=== PATIENT | female | born 1970 | race Caucasian/White ===

== ENCOUNTER 2018-04-27 11:37 | Emergency (ER) | payer OTHER, SELFPAY ==
[2018-04-27 11:37] VITALS: BP 133/75; PULSE 82; RESP 18; TEMP 37.3; O2SAT 97
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
[2018-04-27] MEDS: Normal Saline 1,000 ML 1000 ML IV (11:50)
[2018-04-27] MEDS: HYDROmorphone 2 MG/ML VIAL 0.5 MG IVP (11:55)
[2018-04-27] MEDS: Omnipaque 350 MG/ML 100 ML BTL IJ (12:18)
[2018-04-27 12:48] LABS: Abs Immature Grans 0.01 k/cumm (0.0-0.09); Absolute Basophil Count 0.03 k/cumm (0.0-0.2); Absolute Lymphocyte Count 2.17 k/cumm (1.2-3.4); Absolute Monocyte Count 0.42 k/cumm (0.11-0.7); Absolute Neutrophil Count 2.88 k/cumm (1.2-6.7); Basophils % 0.5; Eosinophils % 3.5; HCT 37.6 % (36.0-46.0); HGB 12.5 g/dL (12.0-15.5); Immature Grans % 0.2; Mean Corp. HGB Concentration 33.2 g/dL (32.0-36.0); Mean Corpuscular Hemoglobin 29.2 pg (27.0-33.0); Mean Corpuscular Volume 87.9 fL (80-95); Mean Platelet Volume 9.6 fL (8.0-11.0); Monocytes % 7.4; Neutrophils % 50.4; Platelet Count 319 x1000/uL (130-400); RBC 4.28 m/cumm (4.00-5.20); RBC Distribution Width 13.1 % (11.7-14.6); White Blood Cell Count 5.71 k/cumm (4.4-10.8)
[2018-04-27 13:05] LABS: ALT 32 U/L (12-78); AST 21 U/L (15-37); Albumin 3.3 g/dL (3.4-5.0); Alkaline Phosphatase 79 U/L (46-116); Anion Gap 10.2 mmol/L (3-11); BUN 13 mg/dL (7-18); Bilirubin, Total 0.3 mg/dL (0.2-1.0); CO2 27.8 mmol/L (21.0-32.0); CREATININE 0.64 mg/dL (0.55-1.02); Calcium 8.9 mg/dL (8.5-10.1); Chloride 101 mmol/L (98-107); Glucose 88 mg/dL (70-100); Potassium 3.4 mmol/L (3.5-5.1); Sodium 139 mmol/L (136-145); Total Protein 6.6 g/dL (6.4-8.2)
[2018-04-27 13:08] LABS: Prothrombin Time 9.9 sec (9.3-11.0)
[2018-04-27 13:34] LABS: HCG Quant, Pregnancy 1 mIU/mL (1-3)
[2018-04-27] MEDS: Ibuprofen 400 MG TAB PO (13:54)
[2018-04-27 14:04] LABS: Bilirubin Negative (Negative); Blood Negative (Negative); Clarity Clear; Glucose Negative (Negative); Ketones Negative (Negative); Leukocyte Esterase Negative (Negative); Nitrite Negative (Negative); Urobilinogen 0.2 EU/dL (Up TO 0.2); pH 6.5 (5-8)
[2018-04-27 14:11] VITALS: BP 120/75; PULSE 65; RESP 16; O2SAT 98
== END 2018-04-27 14:05 | disposition home or self-care (01) ==
PROVIDERS: Emergency Provider Student in an Organized Health Care Education/Training Program; PCP Nurse Practitioner Family
DX: R10.9 Unspecified abdominal pain (principal); V03.00XA Pedestrian on foot injured in collision with car, pick-up truck or van in nontraffic accident, initial encounter; I10 Essential (primary) hypertension
CPT/HCPCS: 36415; 80053; 86850; 86900; 86901; 96374; 96375; 99285; 74177; 81003; 84702; 85025; 85610; 99284; J3490

== ENCOUNTER 2021-02-12 00:41 | Outpatient (CLI) | payer OTHER, SELFPAY ==
--- NOTE | 2021-02-12 12:25 | DI.MAMMO_ITS ---
Exam(s) MAMMO SCREENING EXAM: MAMMO SCREENING CLINICAL HISTORY: screening TECHNIQUE: Mammograms were interpreted according to the usual protocol including computer analysis w [employer] CAD system, tomosynthesis and C-view imaging. COMPARISON: 2014 FINDINGS: The breasts are composed of scattered fibroglandular densities, Breast Density category B. No suspicious masses or suspicious microcalcifications are seen. No skin thickening or abnormal axillary lymph nodes are seen. There has been no significant change from prior exams. IMPRESSION: BI-RADS Category 1, Negative mammogram Yearly screening mammography is recommended. Breast Density - Category B, scattered fibroglandular densities. A negative radiographic report should not delay biopsy if a dominant or clinically suspicious mass is present. Up to ten percent of cancers are not identified on mammography. A negative report may reinforce clinical impression. Adenosis and dense breasts may obscure an underlying neoplasm. False positive reports average 6 to 10%. Patient will receive a letter notifying them of these results.
== END 2021-02-12 01:01 ==
PROVIDERS: PCP Nurse Practitioner Family; Visit Provider Obstetrics & Gynecology Gynecology
DX: Z12.31 Encounter for screening mammogram for malignant neoplasm of breast (principal)
CPT/HCPCS: 77063; 77067

== ENCOUNTER 2021-02-12 03:36 | Outpatient (CLI) | payer OTHER, SELFPAY ==
[2021-02-12 13:21] LABS: TSH (W/Ref FT4) 1.72 uIU/mL (0.36-3.74)
== END 2021-02-12 03:37 | disposition home or self-care (01) ==
LOC: LBO 03:37
PROVIDERS: PCP Nurse Practitioner Family; Visit Provider Obstetrics & Gynecology Gynecology
DX: E04.9 Nontoxic goiter, unspecified (principal)
CPT/HCPCS: 36415; 84443

== ENCOUNTER 2022-03-22 13:44 | Emergency (ER) | payer OTHER, SELFPAY ==
[2022-03-22 13:51] VITALS: BP 140/86; PULSE 104; RESP 18; TEMP 36.8; O2SAT 98
--- NOTE | 2022-03-22 14:15 | DI.CT_ITS ---
Exam(s) CT LUMBAR SPINE WO EXAM: CT LUMBAR SPINE WO CLINICAL HISTORY: 100 lb box fell on back, pain. TECHNIQUE: Imaging Protocol: Axial computed tomography images with coronal and sagittal reformatted images were created and reviewed FINDINGS: Bones: The last intervertebral disc space is designated the L5/S1 level for the numbering purpose of this examination. The vertebral body heights are well maintained. Alignment is satisfactory. No fracture is seen. T12-L1: No disc herniations or bulges are present. L1-2: No disc herniations or bulges are present. L2-3: No disc herniations or bulges are present. L3-4: Mild disc bulging L4-5: Moderate disc bulging. Facet degenerative changes and ligamentous hypertrophy combine to prod uce mild central canal stenosis. L5-S1: No disc herniations or bulges are present. The visualized SI joints and sacrum are will maintained. Soft Tissues: Stable appearance of small bilateral adrenal nodules. A punctate nonobstructing stone s both kidneys. Mild atherosclerotic changes in the aorta. Status post cholecystectomy. IMPRESSION: No acute abnormality. RADIATION DOSE DELIVERED: 598.55mGy.cm Total DLP DATA REPOSITORY: All CT scans at this facility are submitted to the National Radiology Data Registry (NRDR) Dose Index Registry (DIR) with the [employer] (ACR). RADIATION OPTIMIZATION: All CT scans at this facility use at least one of these dose optimization te chniques: automated exposure control; mA and/or kV adjustment per patient size (includes targeted exa ms where dose is matched to clinical indication); or iterative reconstruction.
--- NOTE | 2022-03-22 14:15 | DI.RAD_ITS ---
Exam(s) XR PELVIS AP EXAM: XR PELVIS AP CLINICAL HISTORY: box fell on back, pain. TECHNIQUE: 2D digital imaging was performed. COMPARISON: No exams were available for comparison FINDINGS: BONES: No acute fracture is present. No bony destructive lesion is seen. JOINTS: No dislocation present. No joint space narrowing is present. SOFT TISSUE: Normal. IMPRESSION: Unremarkable radiographs of the pelvis. DATA REPOSITORY: RADIATION DOSE DELIVERED:
[2022-03-22] MEDS: ACETAMINOPHEN 1,000 MG/100 ML BTL 400 MG IVPB (14:40)
[2022-03-22] MEDS: LORazepam 2 MG/ML VIAL 0.5 MG IVP (14:41)
[2022-03-22] MEDS: Ketorolac 15 MG/ML VIAL IVP (14:41)
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
[2022-03-22] MEDS: Lidocaine 5% Patch 1 PATCH (15:27)
== END 2022-03-22 15:50 | disposition home or self-care (01) ==
PROVIDERS: Emergency Provider Emergency Medicine; PCP Nurse Practitioner Family
DX: S30.0XXA Contusion of lower back and pelvis, initial encounter (principal); W20.8XXA Other cause of strike by thrown, projected or falling object, initial encounter
CPT/HCPCS: 96365; 96375; 99284; 72131; 72170; J0131; J1885; J2060

== ENCOUNTER → 2023-01-24 01:01 | Outpatient (CLI) | payer OTHER, SELFPAY ==
--- NOTE | 2023-01-24 | DI.MAMMO_ITS ---
Exam(s) MAMMO SCREENING EXAM: MAMMO SCREENING CLINICAL HISTORY: SCREENING,Z12.39 TECHNIQUE: Mammograms were interpreted according to the usual protocol including computer analysis w [employer] CAD system, tomosynthesis and C-view imaging. COMPARISON: 2014 and 2020 FINDINGS: The breasts are composed of scattered fibroglandular densities, Breast Density category B. No suspicious masses or suspicious microcalcifications are seen. No skin thickening or abnormal axillary lymph nodes are seen. There has been no significant change from prior exams. IMPRESSION: BI-RADS Category 1, Negative mammogram Yearly screening mammography is recommended. Breast Density - Category B, scattered fibroglandular densities. A negative radiographic report should not delay biopsy if a dominant or clinically suspicious mass is present. Up to ten percent of cancers are not identified on mammography. A negative report may reinforce clinical impression. Adenosis and dense breasts may obscure an underlying neoplasm. False positive reports average 6 to 10%. Patient will receive a letter notifying them of these results.
== END ==
PROVIDERS: PCP Nurse Practitioner Family; Visit Provider Nurse Practitioner Family
DX: Z12.31 Encounter for screening mammogram for malignant neoplasm of breast (principal)
CPT/HCPCS: 77063; 77067

== ENCOUNTER 2023-03-05 13:35 | Outpatient (CLI) | payer OTHER, SELFPAY ==
--- NOTE | 2023-03-05 06:00 | DI.RAD_ITS ---
Exam(s) XR PAIN CLINIC SACRIOILIAC 2V EXAM: XR PAIN CLINIC SACRIOILIAC 2V CLINICAL HISTORY: Dx: Sacroiliac Joint Dysfunction TECHNIQUE: 2D and realtime digital imaging was performed. CONTRAST MATERIAL: Refer to procedure report. COMPARISON: No exams were available for comparison FINDINGS: Fluoroscopy was provided for Dr. Cota during the performance of a right sacroiliac joint injection. Please refer to the procedure report for complete details. Ka,r=3.3 mGy IMPRESSION:
[2023-03-05 13:45] VITALS: BP 118/76; PULSE 84; RESP 20; TEMP 36.7; O2SAT 98
--- NOTE | 2023-03-05 14:30 | PDOC.PAIN_ITS ---
Date of service: 03/05/23 Time of Service: 14:30 Pain Managment Procedure Note Procedure Note Procedure Note: PROCEDURE NOTE RIGHT INTRA-ARTICULAR SACROILIAC JOINT INJECTION Date of Service: March 05, 2023 Patient: Maria Del Carmen Gonzalez Provider: Wilson Cota DO, MPH COMMENTS: I previously evaluated the patient in the office and their symptoms in relation to the sacroiliac joint pain have remained the same. She did come in an hour early to be consented prior to taking her Ativan. Pre-operative diagnosis: Sacroiliac joint dysfunction Post-operative diagnosis: Same Pre-procedure pain: VAS= 7/10 Maria Del Carmen Gonzalez has been [facility] to [facility] for a Right intra-articular Sacroiliac joint injection. Maria Del Carmen was interviewed and the medical record reviewed. There were no medical, pharmacologic, radiographic or other structural contraindications to attempting a fluoroscopically-guided, contrast-enhanced, intra-articular Sacroiliac joint injection. The risks, benefits, and potential side effects of this procedure were reviewed with the patient. Questions and concerns were addressed. After it was clear that Maria Del Carmen was fully informed about the procedure, the printed consent form was signed by the patient and myself. Maria Del Carmen was placed in the prone position on the fluoroscopy table and an automated blood pressure cuff, 3 lead EKG, and pulse oximeter were applied. The skin entry point for approaching the Right sacroiliac joint was identified under the most advantageous fluoroscopic view and marked. Following thorough Chlorhexadine preparation of the skin and draping with sterile surgical drapes, 2 mls of 1% lidocaine was infiltrated into the skin at the entry point and the surrounding subcutaneous tissues. Next, a 3.5 22G spinal needle was placed under fluoroscopic guidance into the Right sacroiliac joint. Intra-articular placement was confirmed by a clear arthrogram resulting from the injection of 0.25ml of Omnipaque-240. Next, 1 ml of Depo- Medrol 80 mg/ml was injected intra- articularly with an initial reproduction of a significant component of the usual pain. This was followed with 1 ml of 1% Lidocaine. The needle was then removed without difficulty. (49 ml of Omnipaque-240 was wasted). Maria Del Carmen's vital signs were stable throughout the procedure and were as recorded in nursing records. Follow up plans and appointments were discussed with Maria Del Carmen. Post procedure instructions were given as documented in nursing records. Having met discharge criteria, Maria Del Carmen was [facility] COMMENTS: Post-procedure pain: VAS= 2/10. If the patient receives at least 50% improvement in pain and/or function for at least 3 months, this procedure can be repeated if needed. I personally performed this entire procedure. WILSON COTA DO, MPH ABPMR-subspecialty board certification in Pain Medicine [facility]
[2023-03-05 14:36] VITALS: BP 141/92; PULSE 77; RESP 22; O2SAT 100
[2023-03-05] MEDS: Omnipaque 240 MG/ML 50 ML BTL IJ (14:37)
[2023-03-05] MEDS: methylPREDNISolone ACETATE 80 MG/ML VIAL IJ (14:37)
== END 2023-03-05 13:36 | disposition home or self-care (01) ==
LOC: PC 13:35
PROVIDERS: PCP Nurse Practitioner Family; Visit Provider Preventive Medicine Occupational Medicine
DX: M46.1 Sacroiliitis, not elsewhere classified (principal)
CPT/HCPCS: 00123; 27096; 72200; J1040; Q9967